=== PATIENT | female | born 1980 | race Caucasian/White ===

== ENCOUNTER 2023-11-09 16:11 | Emergency (ER) | payer OTHER, SELFPAY ==
[2023-11-09 16:15] VITALS: BP 115/74; PULSE 69; RESP 14; TEMP 37.7; O2SAT 97; BMI 30.2
--- NOTE | 2023-11-09 17:01 | ED_ITS ---
HPI - Wound/Laceration General Time Seen by Provider: 17:01 Date Seen: 11/09/23 Chief Complaint: Laceration/Wound Stated Complaint: Painful cyst on back of head Time Seen by Provider: 11/09/23 17:01 Source: patient Mode of arrival: ambulatory Limitations: no limitations History of Present Illness HPI narrative: Patient is a pleasant 43-year-old female healthy who comes to the emergency room with request to have a cyst removed off the back of her head.Nasreen notes that she had a cyst in this area 8 years ago that was removed without incident. She notes that they warned her that it may come back and she has noticed increasing size. Recently his actually sore and she notes that it was never painful in the past. She has not had any fever chills or drainage from this area. She is not a diabetic. Patient actually presented to the [facility] at which time they instructed her that a general surgeon would need to remove this. She was hoping that we could remove it in the emergency room. She would like it removed before she goes on vacation which is SundayNovember 12. Related Data Home Medications ?Medication ?Instructions ?Recorded ?Confirmed bupropion HCl 300 mg 24 hr tablet, 300 mg PO QAM 11/09/23 11/09/23 extended release citalopram 20 mg tablet mg PO 11/09/23 dextroamphetamine-amphetamine 5 mg 1 tab PO BID 11/09/23 11/09/23 tablet dextroamphetamine-amphetamine ER 1 cap PO DAILY 11/09/23 11/09/23 10 mg 24hr capsule,extend release sertraline 50 mg tablet 50 mg PO DAILY 11/09/23 11/09/23 trazodone 50 mg tablet 50 - 100 mg PO QPM PRN insomnia 11/09/23 11/09/23 Review of Systems Status of ROS: Reports: 6 or more systems reviewed and unremarkable except as noted in History and below PFSH PFS Social History Smoking Status: Never smoker Do you use any of these nicotine containing products: None How often do you have a drink containing alcohol: monthly or less AUDIT-C Alcohol total score: 1 Non-prescribed substance use: denies use Exam Narrative: Exam Narrative: Alert and oriented. No acute distress. Examination of the scalp shows and a septal right-sided palpable area of firmness that is slightly tender to the touch measuring approximately 0.9 cm. A well-healed scar is noted over this area. There is no head or fluctuance to this area. There is no erythema or drainage at this time. Const: Vital Signs, click to edit/add: Vital Signs - 24 hr 11/09/23 16:15 Temperature 99.8 F H Pulse Rate [Right Radial] 69 Respiratory Rate 14 Blood Pressure [Ri ght Upper Arm] 115/74 Pulse Oximetry 97 Oxygen Delivery Me thod Room Air Documenting provider has reviewed patient's vital signs: yes Course Vital Signs Vital signs: Initial Vital Signs Temperature 99.8 F H 11/09/23 16:15 Temperature Source Temporal Artery Scan 11/09/23 16:15 Pulse Rate 69 11/09/23 16:15 Pulse Rhythm Regular 11/09/23 16:15 Respiratory Rate 14 11/09/23 16:15 Blood Pressure 115/74 11/09/23 16:15 Blood Pressure Mean 87 11/09/23 16:15 Pulse Oximetry 97 11/09/23 16:15 Oxygen Delivery Method Room Air 11/09/23 16:15 Vital Signs Temperature 99.8 F H 11/09/23 16:15 Pulse Rate 69 11/09/23 16:15 Respiratory Rate 14 11/09/23 16:15 Blood Pressure 115/74 11/09/23 16:15 Pulse Oximetry 97 11/09/23 16:15 Oxygen Delivery Method Room Air 11/09/23 16:15 Temperature 99.8 F H 11/09/23 16:15 Pulse Rate 69 11/09/23 16:15 Respiratory Rate 14 11/09/23 16:15 Blood Pressure 115/74 11/09/23 16:15 Pulse Oximetry 97 11/09/23 16:15 Oxygen Delivery Method Room Air 11/09/23 16:15 MDM - Wound/Laceration MDM Narrative Medical decision making narrative: 1. Scalp cyst-I explained to the patient that we would not do a removal here. Because this is the 2nd occurrence there is a possibility that pathology or biopsy may be in order. I do not see any evidence of an infected sebaceous cyst that would require drainage at this time. I was able to contact our surgeon and she is making special accommodations for this patient on SundayNovember 12. She will be seen in the clinic and evaluated. Patient is not currently on any blood thinners, denies history of diabetes or poorly healing wounds. I did explain to the patient that she would not be able to swim for 2 weeks and although [place] she states she does not need to go into the waters. 2. Disposition-discharge home at this time. Recommend limiting any palpation of the cyst as I wonder if it is somewhat irritated. No evidence of infection at this time. Return to the emergency room as needed. Otherwise call the clinic on SundayNovember 11 and let them know that I have spoken with Dr. Michelle about an appointment on Sunday and she has agreed to this. Discharge Plan Discharge Clinical Impression: Sebaceous cyst Patient Disposition: Home, Self-Care Condition: Unchanged Additional Instructions: Limit palpating of this area as I suspected is irritated. Tylenol or ibuprofen as needed for discomfort Call the clinic on Sunday at [phone] and ask for the production scheduler. Let them know that I spoke with Dr. Michelle and she gave the okay for an appointment on SundayNovember 12 for evaluation and possible cyst removal. Return as needed Prescriptions: No Action trazodone 50 mg tablet 50 - 100 mg PO QPM PRN (Reason: insomnia) citalopram 20 mg tablet PO Hold Instructions: per pt dextroamphetamine-amphetamine 10 mg capsule,extended release 24hr 1 cap PO DAILY Hold Instructions: per pt. sertraline 50 mg tablet 50 mg PO DAILY dextroamphetamine-amphetamine 5 mg tablet 1 tab PO BID bupropion HCl 300 mg tablet extended release 24 hr 300 mg PO QAM Follow Up/Referrals: Nuris Fajardo MD [Primary Care Provider] - Stand Alone Forms: [facility] [employer] Info Instructions
--- OUTSIDE RECORDS SUMMARY | 2023-11-09 17:27 | XMS_ITS | Clinical Summary ---
Author Organization [facility] Address [place], [place] [address] Care Team Providers Care Manager Respiratory Care Name Role Phone Nuris Fajardo MD Primary Care Provider [phone] Erasmo Siddiqui MD Unavailable Allergies Active Allergy Reactions Criticality Noted Date Comments Minocycline Hives Medium 05/22/2019 Medications Medication Sig Dispensed Refills Start Date End Date Status ZOLMitriptan (ZOMIG) 2.5 mg tabletIndications:Toi chichi without aura and without status migrainosus, not intractable Take 0.5-1 Tablets (1.25-2.5 mg) by mouth 2 times daily if needed for Migraine. Give at minimum 2hrs apart. Max Dose: 10mg per 24hrs. 10 Tablet 3 08/24/2022 Active traZODone (DESYREL) 50 mg tabletIndications:Anx iety,Recurrent depression (HC) TAKE 1 TO 2 TABLETS BY MOUTH AT BEDTIME NEEDED FOR SLEEP 180 Tablet 08/27/2023 Active buPROPion (WELLBUTRIN XL) 300 mg Extended-Release tabletIndications:Anx iety,Recurrent depression (HC),Overeating TAKE 1 TABLET BY MOUTH EVERY MORNING 90 Tablet 09/04/2023 Active citalopram (CELEXA) 20 mg tabletIndications:Gen eralized anxiety disorder,Social anxiety disorder,Moderate episode of recurrent major depressive disorder (HC) Take 1.5 Tablets (30 mg) by mouth once daily in the morning. 45 Tablet 2 09/25/2023 Active dextroamphetamine-amp hetamine (AdderalL) 5 mg tabletIndications:Att ention deficit hyperactivity disorder (ADHD), predominantly inattentive type Take 1 Tablet (5 mg) by mouth two times daily. 60 Tablet 10/16/2023 11/15/2023 Active Active Problems Problem Noted Date Diagnosed Date Family history of early CAD 07/27/2021 Acne vulgaris 07/27/2021 Recurrent depression 07/27/2021 Migraine without aura and wi thout status migrainosus, not intractable 07/27/2021 Anxiety 09/14/2020 Supervision of normal 11/17/2015 Major depressive disorder with single episode Overview: Overview: Depression Major One Episode NOS Resolved Problems Problem Noted Date Diagnosed Date Resolved Date Current severe episode of ma dorinda depressive disorder without psychotic features without prior episode 09/14/2020 07/27/2021 Encounters Date Type Department Care Team Description 11/09/2023 3:15 PM CDT Office Visit [facility] [address] [place] [address] Ce Car PA Derm Problem (Cyst/lump- on the back of the head 10/06 started and painful. Has cyst removed 6-8 years ago in the same spot. ) 11/09/2023 Travel 09/25/2023 11:00 AM CDT Telemedicine [facility] [address] [place] [address] Erasmo Siddiqui MD Follow Up; Telehealth 09/25/2023 Travel 09/03/2023 Refill [facility] [address] [place] [address] Nuris Fajardo MD Refill Request (Bupropion) 08/26/2023 Refill [facility] [address] [place] [address] Nuris Fajardo MD Refill Request (Trazodone) from Last 3 Months Immunizations Name Administration Dates Next Due AMB Influenza, IIV4 PF (=>6 mos Flulaval,Fluzone Fluarix)(Flu Clinic Only) 01/27/2020 COVID-19 vaccine ([employer] 30mcg/0.3mL) PFYEMI 09/08/2020 DTaP 11/08/1987, 5,02/07/1983,1982,1982 Influenza Virus, Unspecified 03/04/2008 Influenza, IIV4 01/05/2021,01/24/2019,05/03/2018 MMR 1994,11/08/1983 Polio Virus, Unspecified 11/08/1987,10/0 04/1984,1982,1982 Td (Age >=7 Years) 08/14/1995 Tdap 09/28/2015,06/04/2008 Family History Medical History Relation Name Comments Diabetes Father Premature CHD (under age 60) Father at 50 Other Mother passed MVA when pt 4. Premature CHD (under age 60) Paternal Grandfather Cancer-breast Paternal Grandmother 70 Anesthesia Problem No Family History Blood Disease No Family History Relation Name Status Comments Father Mother Paternal Grandfather Paternal Grandmother Social History Tobacco Use Types Packs/Day Years Used Date Smoking Tobacco: Never Smokeless Tobacco: Never Tobacco Cessation:Counseling Given: Yes Alcohol Use Standard Drinks/Week Comments Yes 0 (1 standard drink = 0.6 oz pur e alcohol) occasional PHQ-2 Answer Date Recorded PHQ-2 TOTAL SCORE 2 09/25/2023 Social Connections Answer Date Recorded Frequency of Communication with Friends and Fami ly 0 02/13/2023 Financial Resource Strain Answer Date R ecorded Difficulty of Paying Living Expenses 3 02/13/2023 Difficulty of Paying Living Expenses Not on file 02/13/2023 Food Insecurity Answer Date Recorded Worried About Running Out of Food in the Last Ye ar 1 02/13/2023 Transportation Needs Answer Date Record ed Lack of Transportation (Medical) 1 02/13/2023 Housing Stability Answer Date Recorded Unable to Pay for Housing in the Last Year 1 02/13/2023 Sex and Gender Information Value Date Recorded Sex Assigned at Not on file Gender Identity Not on file Sexual Orientation Not on file Obstetrics History Para Term AB IAB SAB Ectopic Multiple Livin g Live Births 4 3 3 6 3 Date Outcome GA Total Labor Labor/2nd/3rd Weight Sex Type Anes PTL Perri A1 A5 Name Clin 2004 Term 41w 0d 10h 00m 3.57 kg (7 lb 14 oz) F Vag Epidur al N Livin g Queenie Complications:PPH (postpartu m hemorrhage) Delivery Location:[place], [place] 2007 Term 40w 0d 8h 00m 3.17 kg (7 lb) F Vag Prateek al N Tali hebert Carlita Complications:None Delivery Location:[place], [place] 2009 Term 39w 0d 8h 00m 3.17 kg (7 lb) F Vag Tulio Watkins Complications:None Delivery Location:[place], [place] Comments 3 uncomplicated vaginal deli veries Last Filed Vital Signs Vital Sign Reading Time Taken Comments Blood Pressure 108/73 11/09/2023 3:21 PM CDT Pulse 64 11/09/2023 3:21 PM CDT Temperature 37.1 ??C (98.7 ??F) 01/05/2021 10:58 AM C DT Respiratory Rate 16 11/19/2015 8:00 AM CDT Oxygen Saturation 99% 11/09/2023 3:21 PM CDT Inhaled Oxygen Concentration - - Weight 72.4 kg (159 lb 9.6 oz) 11/09/2023 3:21 P M CDT Height 154.9 cm (5' 1) 03/07/2023 8:49 AM EMERGENCY SERVICE WORKER Body Mass Index 30.16 03/07/2023 8:49 AM EMERGENCY SERVICE WORKER Plan of Treatment Upcoming Encounters Date Type Department Care Team (Late st Contact Info) Description 11/22/2023 11:30 AM CDT Office Visit [address] [id number] Rosi Wiggins DO [address] [place] [id number] 12/18/2023 2:50 PM CDT Office Visit [facility] [address] [place] [address] Nuris Fajardo MD [address] [place] [address] Health Maintenance Due Date Last Done Comments HIV for age 15-65 1997 Hepatitis C screening for age 18-79 2000 COVID-19 vaccine series ( season) 2022 09/30/2020, 09/08/2020 Influenza for age 9-49 12/09/2023 , 01/27/2020, 01/24/2019, Additional history exists Pap test for age 21-65 03/04/2024 9, 03/04/2019, 01/12/2016 ([facility]) BMI (ht and wt on same day) for age 18+ 03/07/2024 03/07/2023, 08/24/2022, 12/27/2021, Additional history exists Depression screening for age 12+ 09/24/2024 09/25/2023, 08/08/2023, 07/10/2023, Additional history exists Tetanus booster 09/27/2025 09/28/2015, 05/11, 08/14/1995 Tdap Completed 09/28/2015, 06/04/2008 Pneumococcal series for age 6-64 Aged Out No longer eligible based on patient's age to complete this topic Procedures Procedure Name Priority Date/Time Associated Diagnosis Comments GENERAL SERVICE TECHNICIAN THIN PREP PAP SCREEN IMAGED Routine 03/04/2019 10:06 AM EMERGENCY SERVICE WORKER Cervical cancer screening from Last 3 Months or Most Recently Relevant to Health Maintenance Results * GENERAL SERVICE TECHNICIAN THIN PREP PAP SCREEN IMAGED (03/04/2019 10:06 AM EMERGENCY SERVICE WORKER) Case Report Gynecologic Cytology Report ? Case: [id number] ? Authorizing Provider: ??Nuris Fajardo MD ? Collected: ? 03/04/2019 1006 ? Ordering Location: ? [facility] ?? Received: ?03/04/2019 1231 ? Clinic ? First Screen: ?Parisa Quinn ? Specimen: ?GENERAL SERVICE TECHNICIAN ThinPrep Vial Screening, Cervical ? 03/18/2019 10:43 AM [facility] INTERPRETATION/ RESULT NEGATIVE FOR INTRAEPITHELIAL LESION OR MALIGNANCY (NIL) (none) 03/18/2019 10:43 AM [facility] IMEN ADEQUACY Satisfactory for evaluation Endocervical component present 03/18/2019 10:43 AM [facility] HPV REQUEST HPV and PAP 03/18/2019 10:43 AM [facility] Date of LMP uknown 03/18/2019 10:43 AM [facility] Last Pap Date 2016 03/18/2019 10:43 AM [facility] Last Pap Result NIL 9 10:43 AM [facility] Abnormal Pap or Rydal Bx in last 5 years No 03/18/2019 10:43 AM [facility] Menstrual Status Ablation 03/18/2019 10:43 AM [facility] Rydal Bx Done Today No 03/18/2019 10:43 AM [facility] Additional Information None given 03/18/2019 10:43 AM [facility] Automated Review Successful 03/18/2019 10:43 AM [facility] Comment:Specimen processed s uccessfully by automated stock feeder device, [employer] Imaging System, [employer] ANCILLARY TESTING GENERAL SERVICE TECHNICIAN HPV Ordered, Please see separate report 03/18/2019 10:43 AM [facility] Note The pap test is a screening technique, not a diagnostic procedure. ??It is used primarily to screen for squamous cancers and precursor lesions. ??Published studies have shown that it is subject to both false negative and false positive results. ??The pap test should not be used as the sole means to diagnose or exclude pre-malignant and malignant lesions. Cytology is screened and interpreted at [facility] - [address], [place] [address] and [facility] - [address]; [place] [address] and [facility] - [address]; [place] [address] and [facility] [address]; [place] [address] 03/18/2019 10:43 AM [facility] Other (Cervical) Non-Blood / Unknown 03/04/2019 10:06 AM EMERGENCY SERVICE WORKER 03/04/2019 12:31 PM EMERGENCY SERVICE WORKER Nuris Fajardo MD PATHOLOGY/CYTOLOGY [facility] [address] [place] [address], from Last 3 Months or Most Recently Relevant to Health Maintenance Advance Directives * Full Code (Latest Code Status on File) Date Activated Date Inactivated Comments 11/17/2015 10:38 AM 11/19/2015 1:55 PM * Full Code Date Activated Date Inactivated Comments 11/17/2015 5:18 AM 11/17/2015 10:38 AM * Full Code Date Activated Date Inactivated Comments 11/17/2015 5:03 AM 11/17/2015 5:18 AM Care Teams Manager Respiratory Care Relationship Specialty Start Date End Date Nuris Fajardo MD [address] [place] [address] PCP - General Family Practice 05/24/17 Erasmo Siddiqui MD [address] [place] [address] Psychiatry Psychiatry 06/30/22
== END 2023-11-09 17:29 | disposition home or self-care (01) ==
LOC: ED 17:25
PROVIDERS: Emergency Provider Family Medicine; PCP Family Medicine
DX: L72.3 Sebaceous cyst (principal)
CPT/HCPCS: 99282; 99283